=== PATIENT | female | born 1975 | race Caucasian/White ===

== ENCOUNTER 2023-05-17 13:34 | Inpatient (IN) | payer SELFPAY ==
[~2023-05-17 13:34] MED LIST: Iopamidol-370 76% 500 ML MDV (1 ML CHARGE) ONE
[2023-05-17] MEDS ORDERED: Morphine 4 MG/ML VIAL ONE (14:00)
[2023-05-17] MEDS ORDERED: Ondansetron PF 4 MG/2 ML Vial ONE (14:00)
[2023-05-17] MEDS ORDERED: methylPREDNISolone Sod Succ/PF 125 MG/2 ML VIAL ONE (14:00)
[2023-05-17] MEDS ORDERED: Ipratropium/Albuterol 3 ML NEB ONE ×3 (14:01→19:22)
[2023-05-17 14:18] LABS: #Basophils 0.1 thou/uL (0.0-0.2); #Monocytes 0.7 thou/uL (0.11-0.59); #Neutrophils 5.4 thou/uL (1.40-6.50); %Basophils 0.9 % (0.0-1.0); %Eosinophils 0.3 % (0.0-10.0); %Lymphocytes 7.2 % (21.0-51.0); %Monocytes 10.2 % (0.0-10.0); %Neutrophils 81.1 % (42.0-75.0); Hematocrit 40.2 % (36.0-47.0); Hemoglobin 13.9 g/dL (12.0-16.0); Mean Corpuscular HGB CONC 34.6 g/dL (32.0-36.0); Mean Corpuscular Hemoglobin 30.9 pg (27.0-31.0); Mean Corpuscular Volume 89.3 fl (78.0-98.0); Mean Platelet Volume 10.1 fL (7.4-10.4); Platelet Count 198 10x3/uL (130-400); RBC Distribution Width 13.1 % (11.5-14.5); White Blood Cell (WBC) Count 6.7 10x3/uL (4.8-10.8)
[2023-05-17 14:44] LABS: ALT (SGPT) 10 U/L (8-55); AST (SGOT) 16 U/L (5-34); Albumin 4.6 g/dL (3.5-5.0); Alkaline Phosphatase 58 U/L (40-110); Anion Gap 19 mmol/L (10-20); BUN (Urea Nitrogen) 6 mg/dL (7.0-18.7); Bilirubin, Total 0.4 mg/dL (0.2-1.2); Calc. Creatinine Clearance 0 mL/min (70-130); Calcium 9.5 mg/dL (7.8-10.44); Carbon Dioxide 25 mmol/L (22-29); Chloride 100 mmol/L (98-107); Estimated GFR 86; Globulin 3.2 g/dL (2.4-3.5); Glucose 122 mg/dL (70-105); Magnesium 1.6 mg/dL (1.6-2.6); Potassium 3.6 mmol/L (3.5-5.1); Protein, Total 7.8 g/dL (6.0-8.3); Sodium 140 mmol/L (136-145)
[2023-05-17 15:06] LABS: Troponin I Less than 0.010 ng/mL (< 0.028)
[2023-05-17] MEDS ORDERED: Acetaminophen 325 MG TAB PO PRN (17:24)
[2023-05-17] MEDS ORDERED: Ondansetron PF 4 MG/2 ML Vial IVP PRN (17:24)
[2023-05-17] MEDS: Ipratropium/Albuterol 3 ML NEB NEB SCH ×2 (19:34→21:54)
[2023-05-17 20:01] VITALS: BMI 20.5
[2023-05-17] MEDS: methylPREDNISolone Sod Succ 40 MG VIAL IVP SCH (21:18)
[2023-05-17] MEDS: LevoFLOXacin 500 mg/D5W 500 MG in Premix 1 BAG IVPB SCH (21:18)
[2023-05-17] MEDS: Acetaminophen 500 MG TAB PO PRN (21:19)
[2023-05-18] MEDS: Ipratropium/Albuterol 3 ML NEB NEB SCH ×6 (01:55→22:32)
[2023-05-18 05:41] LABS: #Monocytes 0.5 thou/uL (0.11-0.59); #Neutrophils 11.6 thou/uL (1.40-6.50); %Basophils 0.1 % (0.0-1.0); %Lymphocytes 4.8 % (21.0-51.0); %Monocytes 3.6 % (0.0-10.0); %Neutrophils 91.1 % (42.0-75.0); Hematocrit 34.5 % (36.0-47.0); Mean Corpuscular HGB CONC 34.8 g/dL (32.0-36.0); Mean Corpuscular Hemoglobin 31.4 pg (27.0-31.0); Mean Corpuscular Volume 90.3 fl (78.0-98.0); Mean Platelet Volume 9.9 fL (7.4-10.4); Platelet Count 182 10x3/uL (130-400); RBC Distribution Width 13.2 % (11.5-14.5); Red Blood Cell (RBC) Count 3.82 mill/uL (4.20-5.40); White Blood Cell (WBC) Count 12.7 10x3/uL (4.8-10.8)
[2023-05-18] MEDS: methylPREDNISolone Sod Succ 40 MG VIAL IVP SCH ×3 (05:43→20:22)
[2023-05-18 06:02] LABS: Anion Gap 15 mmol/L (10-20); BUN (Urea Nitrogen) 6 mg/dL (7.0-18.7); Calc. Creatinine Clearance 81 mL/min (70-130); Calcium 9.2 mg/dL (7.8-10.44); Carbon Dioxide 24 mmol/L (22-29); Chloride 103 mmol/L (98-107); Estimated GFR 88; Glucose 138 mg/dL (70-105); Potassium 3.4 mmol/L (3.5-5.1); Sodium 139 mmol/L (136-145)
[2023-05-18] MEDS: Benzonatate 100 MG CAP PO PRN ×2 (10:28→20:22)
[2023-05-18] MEDS: Acetaminophen 500 MG TAB PO PRN (10:30)
[2023-05-18 15:17] LABS: Allergen,Aspergillus fumig.IgE Less than 0.10 kU/L (Less than 0.10)
[2023-05-18] MEDS: LevoFLOXacin 500 mg/D5W 500 MG in Premix 1 BAG IVPB SCH (20:23)
[2023-05-19] MEDS: Ipratropium/Albuterol 3 ML NEB NEB SCH ×6 (02:02→22:47)
[2023-05-19] MEDS: methylPREDNISolone Sod Succ 40 MG VIAL IVP SCH ×3 (05:12→19:56)
[2023-05-19 07:55] LABS: #Neutrophils 18.1 thou/uL (1.40-6.50); %Basophils 0.1 % (0.0-1.0); %Lymphocytes 3.3 % (21.0-51.0); %Monocytes 4.9 % (0.0-10.0); Hematocrit 37.8 % (36.0-47.0); Hemoglobin 12.7 g/dL (12.0-16.0); Mean Corpuscular HGB CONC 33.6 g/dL (32.0-36.0); Mean Corpuscular Volume 92.2 fl (78.0-98.0); Mean Platelet Volume 9.9 fL (7.4-10.4); Platelet Count 215 10x3/uL (130-400); RBC Distribution Width 13.4 % (11.5-14.5); White Blood Cell (WBC) Count 19.9 10x3/uL (4.8-10.8)
[2023-05-19 08:18] LABS: Anion Gap 17 mmol/L (10-20); BUN (Urea Nitrogen) 12 mg/dL (7.0-18.7); Calc. Creatinine Clearance 81 mL/min (70-130); Carbon Dioxide 27 mmol/L (22-29); Chloride 100 mmol/L (98-107); Estimated GFR 88; Glucose 164 mg/dL (70-105); Potassium 3.5 mmol/L (3.5-5.1); Sodium 140 mmol/L (136-145)
[2023-05-19] MEDS: LevoFLOXacin 500 mg/D5W 500 MG in Premix 1 BAG IVPB SCH (19:55)
[2023-05-19] MEDS: Benzonatate 100 MG CAP PO PRN (19:55)
[2023-05-20] MEDS: Ipratropium/Albuterol 3 ML NEB NEB SCH ×3 (02:58→11:18)
[2023-05-20] MEDS: methylPREDNISolone Sod Succ 40 MG VIAL IVP SCH ×2 (05:40→16:16)
[2023-05-20] MEDS ORDERED: Sodium Chloride 0.65% Nasal 44 ML BOT EA NARE PRN (05:50)
[2023-05-20 06:02] LABS: #Monocytes 1.1 thou/uL (0.11-0.59); #Neutrophils 13.4 thou/uL (1.40-6.50); %Basophils 0.1 % (0.0-1.0); %Lymphocytes 6.2 % (21.0-51.0); %Monocytes 6.9 % (0.0-10.0); %Neutrophils 85.5 % (42.0-75.0); Hemoglobin 11.9 g/dL (12.0-16.0); Mean Corpuscular Hemoglobin 31.2 pg (27.0-31.0); Mean Corpuscular Volume 91.6 fl (78.0-98.0); Mean Platelet Volume 9.7 fL (7.4-10.4); Platelet Count 210 10x3/uL (130-400); RBC Distribution Width 13.3 % (11.5-14.5); Red Blood Cell (RBC) Count 3.82 mill/uL (4.20-5.40); White Blood Cell (WBC) Count 15.7 10x3/uL (4.8-10.8)
[2023-05-20 06:31] LABS: Anion Gap 13 mmol/L (10-20); BUN (Urea Nitrogen) 11 mg/dL (7.0-18.7); Calc. Creatinine Clearance 84 mL/min (70-130); Calcium 8.7 mg/dL (7.8-10.44); Carbon Dioxide 28 mmol/L (22-29); Chloride 99 mmol/L (98-107); Estimated GFR 92; Glucose 112 mg/dL (70-105); Potassium 3.2 mmol/L (3.5-5.1); Sodium 137 mmol/L (136-145)
[2023-05-20] MEDS ORDERED: Potassium Chloride 20 MEQ TAB PO SCH (09:45)
[2023-05-20 16:54] VITALS: BP 116/82; TEMP 98.4
== END 2023-05-20 17:03 | disposition home or self-care (01) | DRG 189 ==
LOC: ERS 13:34 → ERHOLD 17:13 → T4-B 19:53
PROVIDERS: ADMIT Internal Medicine; ATTEND Internal Medicine
DX: J96.01 Acute respiratory failure with hypoxia (principal); J45.901 Unspecified asthma with (acute) exacerbation; E03.9 Hypothyroidism, unspecified; M85.80 Other specified disorders of bone density and structure, unspecified site; F17.290 Nicotine dependence, other tobacco product, uncomplicated; Z88.0 Allergy status to penicillin; Z79.899 Other long term (current) drug therapy
CPT/HCPCS: 36415; 36416; 71046; 71275; 80048; 80053; 82785; 83735; 84443; 84484; 85025; 93005; 94640; 96374; 96375; J1650; J1956; J2270; J2405; J2920; J2930; J7611; J7620; Q9967

== ENCOUNTER 2024-01-25 14:05 | Outpatient (CLI) | payer OTHER | END 2024-01-25 14:06 | disposition home or self-care (01) | LOC: BICMAMMO 14:05 | PROVIDERS: ATTEND Family Medicine | DX: Z12.31 Encounter for screening mammogram for malignant neoplasm of breast (principal); M85.89 Other specified disorders of bone density and structure, multiple sites; N64.89 Other specified disorders of breast | CPT/HCPCS: 77063; 77067; 77080 ==